=== PATIENT | female | born 1945 | race Caucasian/White ===

== ENCOUNTER 2016-07-23 09:30 | Day surgery (SDC) | payer MEDICARE, OTHER ==
[2016-07-20 13:55] VITALS: BMI 29.9
[~2016-07-23 09:30] MED LIST: LACTATED RINGERS 1,000 ML IV SCH
[2016-07-23] MEDS ORDERED: LIDOCAINE 1% 20 ML VIAL (10MG/ML) FOR IV START INTRADERMA ONE (09:49)
[2016-07-23 09:52] VITALS: TEMP 97.8
[2016-07-23] MEDS ORDERED: PROPOFOL 10 MG/ML 20 ML VIAL IV ONE (10:18)
[2016-07-23] MEDS ORDERED: LIDOCAINE 1% INJ 10MG/ML (20 ML MDV) ONE (10:18)
--- NOTE | 2016-07-23 10:48 | P.PCN ---
Date of Procedure: 07/23/16 Procedure(s) Performed: Procedure: Total colonoscopy. Preoperative diagnosis: Screening for neoplasia. Postoperative diagnosis: Diverticulosis with no evidence of acute diverticulitis , strictures, polyps or cancer. Preparation: HalfLytely prep. Sedation: Was provided by anesthesia. Brief clinical history: The patient is a 70-year-old female who is referred for this evaluation for screening for neoplasia. She had a prior exam more than 10 years ago. At this time, she has no abdominal complaints, bleeding or anemia. Procedure: With the patient on her left lateral decubitus position and after informed consent and adequate sedation, the perianal area was inspected and it did not show any fissures or fistulas. There were no masses felt on digital rectal examination. The Olympus CFQ 160L video colonoscope was then inserted in the rectum in the usual fashion and advanced to the cecum. There were multiple diverticular orifices seen scattered along the length of the bowel. They were mostly small, more on the right side, with no evidence of acute diverticulitis or strictures. The mucosa appeared healthy. No polyps or tumors were seen. I retroflexed endoscope in the rectum before the endoscope was withdrawn. The patient tolerated the procedure well. Plan: The patient was reassured. Discussed dietary measures. Consideration can be given for repeat exam in 10 years depending on her overall health at that time. She will follow-up with you as planned.
[2016-07-23 11:11] VITALS: BP 118/62; PULSE 75; RESP 16
== END 2016-07-23 11:20 | disposition home or self-care (01) ==
LOC: ORWHC2ENDO 09:30
DX: Z12.11 Encounter for screening for malignant neoplasm of colon (principal); K57.30 Diverticulosis of large intestine without perforation or abscess without bleeding; I10 Essential (primary) hypertension; Z79.899 Other long term (current) drug therapy
CPT/HCPCS: J2001; J2704; G0121; 45378

== ENCOUNTER → 2016-07-28 | Outpatient (CLI) | payer MEDICARE, OTHER ==
--- NOTE | 2016-07-28 14:46 | MM ---
Reason for exam: history of breast cancer, mastectomy. Last mammogram was performed 1 year and 9 months ago. History: Patient is postmenopausal and has history of breast cancer at age 52. Family history of breast cancer in paternal cousin at age 60. Reconstruction of the left breast, 2000. Excisional biopsy of the left breast, 1997. Chemotherapy, 1997. Mastectomy of the left breast. Physical Findings: Nurse did not find any significant physical abnormalities on exam. MG 3D Diag Mammo W/Cad RT CC and MLO view(s) were taken of the right breast. Prior study comparison: November 01, 2014, right breast MG diagnostic mammo RT w CAD. October 04, 2012, right diagnostic mammogram w/CAD. The breast tissue is heterogeneously dense. This may lower the sensitivity of mammography. Finding: There is a typically benign 4 mm equal density (isodense), circumscribed oval mass located 4 cm from the nipple in the lower outer quadrant of the right breast. New finding since November 01, 2014 and October 04, 2012. These results were verbally communicated with the patient and result sheet given to the patient on 07/28/16. ASSESSMENT: Incomplete: need additional imaging evaluation, BI-RAD 0 RECOMMENDATION: Ultrasound of the right breast.
--- NOTE | 2016-07-28 14:48 | USB ---
Reason for exam: additional evaluation requested from abnormal screening. History: Patient is postmenopausal and has history of breast cancer at age 52. Family history of breast cancer in paternal cousin at age 60. Reconstruction of the left breast, 2000. Excisional biopsy of the left breast, 1997. Chemotherapy, 1997. Mastectomy of the left breast. US Breast Limited RT Right breast ultrasound demonstrates a 3 x 2 x 3mm oval, cystic lesion at 10 o'clock and a 3 x 3 x 3mm oval, cystic lesion at 8 o'clock. These results were verbally communicated with the patient and result sheet given to the patient on 07/28/16. ASSESSMENT: Benign, BI-RAD 2 RECOMMENDATION: Follow-up diagnostic mammogram of the right breast in 1 year.
== END | disposition home or self-care (01) ==
LOC: RADMAMWWP 12:49
PROVIDERS: ATTEND Family Medicine
DX: R92.8 Other abnormal and inconclusive findings on diagnostic imaging of breast (principal); Z85.3 Personal history of malignant neoplasm of breast
CPT/HCPCS: 76642; G0206; G0279

== ENCOUNTER → 2016-09-25 | Outpatient (CLI) | payer MEDICARE, OTHER ==
--- NOTE | 2016-09-25 14:18 | US ---
EXAMINATION TYPE: US transvaginal DATE OF EXAM: 09/25/2016 COMPARISON: NONE CLINICAL HISTORY: R10.2 PELVIC PAIN. Intermittent pelvic pain x 1 year, 5, para 4, miscarriag e 1, history of hysterectomy TECHNIQUE: Transvaginal (TV) only per ordering physician Date of LMP: 15+ years ago EXAM MEASUREMENTS: Uterus: surgically absent Endometrial Stripe: surgically absent Right Ovary: not seen Left Ovary: not seen 1. Uterus: surgically absent 2. Endometrium: surgically absent 3. Right Ovary: not seen due to overlying peristalsing bowel 4. Left Ovary: not seen due to overlying peristalsing bowel 5. Bilateral Adnexa: wnl 6. Posterior cul-de-sac: wnl IMPRESSION: 1. Limited examination due to bowel gas. 2. No obvious abnormality postsurgical pelvis.
== END | disposition home or self-care (01) ==
LOC: RADUSWWP 12:55
PROVIDERS: ATTEND Obstetrics & Gynecology
DX: R10.2 Pelvic and perineal pain (principal); R14.3 Flatulence; Z98.890 Other specified postprocedural states
CPT/HCPCS: 76830

== ENCOUNTER → 2018-07-26 | Outpatient (CLI) | payer MEDICARE, OTHER ==
[2018-07-26 10:01] VITALS: BP 150/87; PULSE 71; RESP 16; TEMP 97.1; BMI 30.8
--- NOTE | 2018-07-26 11:03 | P.HPOB ---
History of Present Illness H&P Date: 07/26/18 Chief Complaint: The patient is here for her routine gynecologic exam and ma mmogram. This is a 72-year-old within LMP of 1997. The patient is here to establish with this office. Patient states that is been about 3 years since her last pelvic exam. She is without gynecologic complaints. She is status post hysterectomy for benign reasons. Review of Systems She is gained about 5 pounds during the past winter. She denies respiratory, c ardiac and G.I. problems. She denies maltreatment or problems with falling. : she denies any significant problems with urinary leakage. Musculoskeletal: she has had some issues with her left knee making her walks slowly. Past Medical History Past Medical History: Cancer, GERD/Reflux, Hypertension Additional Past Medical History / Comment(s): breast ca 1997 4 tx chemo. 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 History of Any Multi-Drug Resistant Organisms: None Reported Past Surgical History: Bladder Surgery, Breast Surgery, Hysterectomy Additional Past Surgical History / Comment(s): Lt mastectomy,Lt breast reconstruction. Vaginal hysterectomy with bladder [id number]. Colonoscopy 2012 (2nd). Past Anesthesia/Blood Transfusion Reactions: No Reported Reaction Additional Past Anesthesia/Blood Transfusion Reaction / Comment(s): no hx blood transfusion Past Psychological History: Depression Smoking Status: Never smoker Past Alcohol Use History: None Reported Past Drug Use History: None Reported Additional History: She is a and is not seeing anybody at this time. 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 - Past Family History Mother Family Medical History: Cancer Additional Family Medical History / Comment(s): colon cancer. Father Family Medical History: Liver Disease Additional Family Medical History / Comment(s): Alcoholic liver disease. Sister(s) Family Medical History: Coronary Artery Disease (CAD), Hypertension Medications and Allergies Home Medications Medication Instructions Recorded Confirmed Type Losartan [Cozaar] 50 mg PO HS 07/20/16 07/26/18 History Atorvastatin [Lipitor] 20 mg PO HS 07/26/18 07/26/18 History Ubidecarenone [Co Q-10] 100 mg PO DAILY 07/26/18 07/26/18 History Allergies Allergy/AdvReac Type Severity Reaction Status Date / Time No Known Allergies Allergy Verified 07/26/18 09:27 Exam Vital Signs Temp Pulse Resp BP Pulse Ox 07/26/18 09:42 97.1 F L 71 16 150/87 99 Intake and Output 07/25/18 07/26/18 07/26/18 22:59 06:59 14:59 Other: Weight 78.925 kg Height 5'3", weight 174 pounds, BMI 30.8. This is a well-developed well-nourished white female who is alert and oriented times 3 in no acute distress. HEENT: Within normal limits. NECK: Supple without mass or thyromegaly. CHEST AND LUNGS: Clear to auscultation. HEART: Regular rate and rhythm. BREASTS: Are without mass or discharge. The left breast is consistent with left mastectomy and reconstruction. AXILLARY EXAM: Negative for adenopathy. BACK: Negative for CVA tenderness. ABDOMEN: Soft, there is minimal periumbilical tenderness, without palpable masses. The abdomen is otherwise nontender. The abdomen has the appearance of an abdominoplasty which she states was related to her breast reconstruction. PELVIC EXAM: Normal external genitalia with mild to moderate atrophy. Cervix and vagina appear normal with mild atrophy. There is no unusual discharge. There is no evidence of prolapse. The uterus is midposition, nongravid size and nontender. There are no palpable adnexal masses or tenderness. RECTAL EXAM: rectovaginal exam is negative for mass or tenderness and is negative for occult blood. EXTREMITIES: Nontender. IMPRESSION: 1. 72-year-old menopausal female status post vaginal hysterectomy for benign reasons with normal gynecologic exam. 2. History of left breast cancer status post left mastectomy and reconstruction with adjuvant chemotherapy. No evidence of recurrence. PLAN: 1. Pap smears have been discontinued. 2. Self breast awareness was discussed with the patient. 3. Diagnostic right mammogram will be done today. 4. Osteoporosis prevention was discussed. I have stressed the importance of adequate calcium, vitamin D and regular exercise. Recommended amounts of calcium and vitamin D were also discussed. I have recommended bone density screening since she has never had this done. The order slip was given to the patient for this. 5. The patient states she has recently run out of her prescription medications for hypertension and cholesterol. She is requesting a prescription for these. She is currently between primary care physicians. She states she will be calling to establish with Dr. Pastor, but has not yet done this. Her 2 prescriptions will be electronically sent to [facility] pharmacy in [place] for a 30 day supply of each. I have stressed the importance of establishing with a primary care physician as soon as possible for her ongoing medical care and for her ongoing prescriptions. She understands that I will not continue to renew these prescriptions. 6. She does get flu shots in the fall. 7.She was advised to return in one year for her annual well woman exam.
--- NOTE | 2018-07-26 11:49 | MM ---
Reason for exam: additional evaluation requested from prior study. Last mammogram was performed 2 years ago. History: Patient is postmenopausal and has history of breast cancer at age 52. Family history of breast cancer in paternal cousin at age 60. Reconstruction of the left breast, 2000. Excisional biopsy of the left breast, 1997. Chemotherapy, 1997. Mastectomy of the left breast. Physical Findings: Dr. Soto did breast exam. MG 3D Diag Mammo W/Cad RT CC and MLO view(s) were taken of the right breast. Prior study comparison: July 28, 2016, right breast MG 3d diag mammo w/cad RT. November 01, 2014, right breast MG diagnostic mammo RT w CAD. Finding: There are typically benign vascular calcifications in the right breast. No significant changes in finding since July 28, 2016 and November 01, 2014. These results were verbally communicated with the patient and result sheet given to the patient on 07/26/18. ASSESSMENT: Benign, BI-RAD 2 RECOMMENDATION: Follow-up diagnostic mammogram of the right breast in 1 year.
== END | disposition home or self-care (01) ==
LOC: WWCWWP 09:12
PROVIDERS: ATTEND Obstetrics & Gynecology
DX: Z08 Encounter for follow-up examination after completed treatment for malignant neoplasm (principal); Z85.3 Personal history of malignant neoplasm of breast
CPT/HCPCS: 77065; G0279; 77061

== ENCOUNTER → 2018-08-16 | Outpatient (CLI) | payer MEDICARE, OTHER ==
--- NOTE | 2018-08-16 12:18 | BD ---
EXAMINATION TYPE: Axial Bone Density DATE OF EXAM: 08/16/2018 COMPARISON: NONE CLINICAL HISTORY: Height: 62.5 IN Weight: 173 LBS RISK FACTORS HISTORY OF: Active: YES Postmenopausal woman: AGE 52 MEDICATIONS: Additional Medications: VIT D, COZAAR, LIPITOR, GUMMY MULTI VIT Additional History: BREAST CANCER WITH CHEMO EXAM MEASUREMENTS: Bone mineral densitometry was performed using the [employer] System. Bone mineral density as measured about the Lumbar spine is: ----- L1-L4(G/cm2): 1.131 T Score Values are as follows: ----- L2: -0.9 ----- L3: -0.2 ----- L4: 0.2 ----- L1-L4: -0.4 Bone mineral density BASELINE Bone mineral density about the R hip (g/cm2): 0.985 Bone mineral density about the L hip (g/cm2): 1.021 T Score values are as follows: -----R Neck: -0.4 -----L Neck: -0.1 -----R Total: 0.8 -----L Total: 0.6 Bone mineral density BASELINE IMPRESSION: Normal (Values between +1 and -1 indicate normal bone mass). Consider repeating this study in 5 year s or sooner if there is some new clinical indication. NOTE: T-SCORE=SD OF THE YOUNG ADULT MEAN.
--- NOTE | 2018-08-19 14:33 | P.PN ---
Progress Note - Text Progress Note Date: 08/19/18 OUTPATIENT FOLLOW-UP NOTE TEST(S)/RESULTS: bone density test done on 08/16/2018 was normal. METHOD OF NOTIFICATION: a message with this result was left on the patient's voicemail. PATIENT COMMENTS: DIAGNOSIS: normal bone density test. DISCUSSION: I left a message to stress the importance of adequate calcium, vitamin D and regular exercise. PLAN: we will plan on repeating the bone density test in approximately 6 years.
== END | disposition home or self-care (01) ==
LOC: RADBDWWP 09:28
PROVIDERS: ATTEND Obstetrics & Gynecology
DX: Z78.0 Asymptomatic menopausal state (principal)
CPT/HCPCS: 77080

== ENCOUNTER → 2020-01-17 | Outpatient (CLI) | payer MEDICARE, OTHER ==
--- NOTE | 2020-01-24 13:34 | P.ARTDOP ---
Arterial Doppler LOWER EXTREMITY ARTERIAL DOPPLER: DATE OF SERVICE: 01/17/2020 Reason for study: Bilateral foot paresthesias. Doppler waveforms: Multiphasic bilaterally throughout. Pulse volume recording: []. Pressure gradients: None. Ankle-brachial indices: Greater than 1 bilaterally. Toe brachial indices: 0.97 on the right, 0.78 on the left Impression: Normal study.
== END | disposition home or self-care (01) ==
LOC: RADUSWWP 12:46
PROVIDERS: ATTEND Family Medicine
DX: R20.2 Paresthesia of skin (principal); E78.2 Mixed hyperlipidemia; I10 Essential (primary) hypertension; Z91.09 Other allergy status, other than to drugs and biological substances
CPT/HCPCS: 93922

== ENCOUNTER → 2020-01-17 | Outpatient (CLI) | payer MEDICARE, OTHER ==
--- NOTE | 2020-01-17 14:33 | MM ---
Reason for exam: additional evaluation requested from prior study. Last mammogram was performed 1 year and 6 months ago. History: Patient is postmenopausal, has history of breast cancer at age 52, and history of other cancer. Family history of breast cancer in paternal cousin at age 60. 2 reconstructions of the left breast, 2000. Excisional biopsy of the left breast, 1997. Chemotherapy, 1997. Mastectomy of the left breast. Physical Findings: Nurse did not find any significant physical abnormalities on exam. MG 3D Diag Mammo W/Cad RT CC and MLO view(s) were taken of the right breast. Prior study comparison: July 26, 2018, right breast MG 3d diag mammo w/cad RT. July 28, 2016, right breast MG 3d diag mammo w/cad RT. The breast tissue is heterogeneously dense. This may lower the sensitivity of mammography. Stable benign calcifications. There is no discrete abnormality. No significant new findings when compared with previous films. These results were verbally communicated with the patient and result sheet given to the patient on 01/17/20. ASSESSMENT: Benign, BI-RAD 2 RECOMMENDATION: Follow-up diagnostic mammogram of the right breast in 1 year.
== END | disposition home or self-care (01) ==
LOC: RADMAMWWP 12:44
PROVIDERS: ATTEND Family Medicine
DX: Z08 Encounter for follow-up examination after completed treatment for malignant neoplasm (principal); Z85.3 Personal history of malignant neoplasm of breast; Z90.12 Acquired absence of left breast and nipple
CPT/HCPCS: 77065; G0279; 77061

== ENCOUNTER → 2022-06-24 | Outpatient (CLI) | payer MEDICARE ==
--- NOTE | 2022-06-24 16:07 | US ---
EXAMINATION TYPE: US kidneys/renal and bladder DATE OF EXAM: 06/24/2022 COMPARISON: NONE CLINICAL HISTORY: 76-year-old female N30.0 UTI. TECHNIQUE: Multiple sonographic images of the kidneys and bladder are obtained. FINDINGS: EXAM MEASUREMENTS: Right Kidney: 9.8 x 5.1 x 5.7 cm Left Kidney: 10.2 x 5.3 x 5.6 cm Right Kidney: wnl Left Kidney: wnl Bladder: wnl Bilateral Jets seen: yes IMPRESSION: Unremarkable sonographic examination of the kidneys and bladder.
== END | disposition home or self-care (01) ==
LOC: RADUSWWP 13:52
PROVIDERS: ATTEND Urology
DX: N39.0 Urinary tract infection, site not specified (principal)
CPT/HCPCS: 76770